=== PATIENT | male | born 1975 | race Caucasian/White ===

== ENCOUNTER 2017-01-06 03:08 | Emergency (ER) | payer OTHER ==
[~2017-01-06] VITALS: Ht 175.3 cm; Wt 72.6 kg
--- NOTE | 2017-01-06 03:18 | NUR ---
BB RA39 IN [employer] CUSTODY FROM DRUNK TANK. CONTUSION L EYE BROW PER [employer] REPORT, OFFICER HEARD BANGING NOISE AND FOUND PT WITH INJURY. PT AOX3 RR EVEN AND UNLABORED. NO SOB NOTED. NAD NOTED. NO NVD AT THIS TIME. PT GOWNED AND PLACED ON MONITOR WAITING FOR MD BHATIA.
--- NOTE | 2017-01-06 03:20 | NUR ---
DR. BARRIENTOS AT BEDSIDE FOR EVAL.
--- NOTE | 2017-01-06 03:27 | NUR ---
PT TO CT
--- NOTE | 2017-01-06 03:35 | NUR ---
PT RETURNED FROM CT.
--- NOTE | 2017-01-06 04:50 | NUR ---
CALLED [facility] AND TALKED TO JAYNE HE STATES ALL THE HOSPITALS ARE FULL AT THIS TIME
--- NOTE | 2017-01-06 04:52 | NUR ---
CALLED [facility] AND TALKED TO KAREEM HE STATES THEY DO NOT HAVE A FACIAL SURGEON
--- NOTE | 2017-01-06 04:54 | NUR ---
[facility] CALLED AND THEY STATE THEY DO NOT HAVE ENT OR MAXIAL FACIAL
[2017-01-06] MEDS ORDERED: ONDANSETRON HCL/PF 4 MG/2 ML VIAL IVP ONE (05:00)
[2017-01-06] MEDS ORDERED: IV NS 0.9% 1,000 ML BAG IV ONE (05:00)
[2017-01-06] MEDS ORDERED: MORPHINE SULFATE INJ 2 MG/ML DISP.SYRIN IV ONE (05:00)
[2017-01-06] MEDS ORDERED: CEPHALEXIN MONOHYDRATE 500 MG CAPSULE PO ONE (05:00)
[2017-01-06] MEDS ORDERED: CEFTRIAXONE 1GM BAG (ER ONLY) 50 ML IV ONE ×2 (05:00→05:51)
[2017-01-06 05:05] LABS: BASOPHILS % (AUTO) 0.2 % (0.0-2.0); EOSINOPHILS % (AUTO) 0.1 % (0.0-6.0); HEMATOCRIT 46 % (39-51); HEMOGLOBIN 15.8 g/dL (13.5-17.5); LYMPHOCYTES # (AUTO) 1.1 /CMM (0.8-4.8); LYMPHOCYTES % (AUTO) 10.2 % (20.0-44.0); MEAN CORPUSCULAR HEMOGLOBIN 31 PG (26.0-33.0); MEAN CORPUSCULAR HGB CONC 35 g/dl (31.0-36.0); MEAN CORPUSCULAR VOLUME 91 fL (80-96); MONOCYTES # (AUTO) 0.2 /CMM (0.1-1.30); MONOCYTES % (AUTO) 1.7 % (2.0-12.0); NEUTROPHILS # (AUTO) 9.9 /CMM (1.8-8.9); NEUTROPHILS % (AUTO) 87.8 % (43.0-81.0); PLATELET COUNT (AUTO) 229 /CMM (150-450); RDW COEFFICIENT OF VARIATION 13.8 (11.5-15.0); RED BLOOD CELL COUNT(AUTO) 5.04 MIL/uL (4.5-6.0); WHITE BLOOD COUNT (AUTO) 11.2 K/uL (4.3-11.0)
--- NOTE | 2017-01-06 05:08 | NUR ---
CALLED [facility] FOR HIGH LEVEL OF CARE TRANSFER TO [facility]
--- NOTE | 2017-01-06 05:14 | NUR ---
EAN AT [facility] [phone], ACCEPTING MD DR. JACINTO, FAX FACESHEET TO [phone]. GOING TO [facility], CALL FOR REPORT TO [phone].
--- NOTE | 2017-01-06 05:15 | NUR ---
[facility] CALLED ETA 30 MINUTES
[2017-01-06 05:17] LABS: CREATININE 0.7 mg/dL (0.6-1.3); POTASSIUM 3.4 mmol/L (3.5-5.1)
--- NOTE | 2017-01-06 05:21 | NUR ---
Notified [facility] transfer ctr of ALS ambulance transfer ETA 30mins.
[2017-01-06 05:34] LABS: INR 0.94 (0.87-1.13)
--- NOTE | 2017-01-06 05:44 | NUR ---
REPORT GIVEN TO ROBERTO ORTEGA FROM [facility]
[2017-01-06] MEDS ORDERED: ONDANSETRON HCL/PF 4 MG/2 ML VIAL ONE (05:51)
--- NOTE | 2017-01-06 06:04 | NUR ---
CALLED EAN AT [facility] [phone] WHOM CONFIRMED SHE RECEIVED THE FAX OF THE PT'S FACE SHEET.
[2017-01-06 06:30] VITALS: BP 124/81
--- NOTE | 2017-01-06 06:31 | NUR ---
REPORT GIVEN TO EMT FROM [facility]. PT AWARE OF TRANSFER. PT WITH ALL PERSONAL BELONGINGS. PT WITH IV INTACT AND PATENT. NO S/S INFECTION OR INFILTRATION NOTED. PT TO BE TRANSFERED TO [facility]. [facility] TOOK OVER CARE.
== END 2017-01-06 06:36 ==
LOC: ER 03:10
DX: S02.19XA Other fracture of base of skull, initial encounter for closed fracture (principal); F10.129 Alcohol abuse with intoxication, unspecified; Z90.89 Acquired absence of other organs; X58.XXXA Exposure to other specified factors, initial encounter; Y92.89 Other specified places as the place of occurrence of the external cause; Y93.89 Activity, other specified; Y99.8 Other external cause status
CPT/HCPCS: 36415; 70450; 70486; 80048; 85025; 85730; 96365; 96375; 99285; A4606; G0480; J0696; J2405; J7030; Z7610